=== PATIENT | male | born 1960 ===

== ENCOUNTER 2025-05-12 09:30 | Outpatient (AMB) | payer MEDICARE, SELFPAY ==
--- NOTE | 2025-05-12 09:50 | A.OFFVIS_ITS ---
Intake Visit Reasons: 6 Months F/U Allergies No Known Allergies Allergy (Verified 05/06/25 08:20) HPI Comments Details: 64 yo RH man with h/o many years of alcohol drinking and diagnosis of liver cirrhosis, CAD s/p CABG and atrial fibb, was here for second neurological opinion. He had multiple episodes of something happening to him. The major one was in 2021 but he had couple of similar episodes taking him to ER twice before. In 2021, he was not drinking alcohol when one day in the morning, he felt dizzy and collapsed. His heard the noise, came to see him and noted that he was staring in space and not responsive. He was taken to a local hospital where he was noted to have difficulty speaking, remembering, and walking. A routine EEG at office in Jun 2024 was ok. He is presenting with a follow-up inquiry regarding the management of vascular a nd cardiac conditions. He has been diagnosed with atrial fibrillation, for which anticoagulation therapy is ongoing to prevent stroke. The condition had previously resolved but has since recurred. Additionally, the patient has a history of coronary artery disease that was evaluated by a surgeon, but intervention was considered too risky. In November, imaging studies done at [facility] revealed a complete occlusion of the left carotid artery, whereas the condition of the right carotid artery was not deemed significant. He reports no symptoms of seizures, stroke-like events, or mood disturbances. He is maintaining compliance with a baby aspirin regimen. [facility] Medical History (Updated 05/12/25 @ 09:58 by Hilda Gutierrez MD) Cerebral microvascular disease Carotid stenosis Carotid occlusion, left Intracranial atherosclerosis Seizure disorder Cerebral infarction Review of Systems Const Details: - Cardiovascular: Reports atrial fibrillation; Denies additional cardiovascular symptoms. - Neurological: Denies seizure-type activity, stroke-like symptoms. - General: Denies mood disturbances. Physical Exam Neuro Other: Mental Status: Alert and oriented to person, place, and time. Normal attention. Normal spontaneous speech, fluency, and comprehension. No obvious issues with mood and memory. Affect is appropriate. Cranial Nerves: CN II: Visual hester full to confrontation, visual acuity intact. CN III, IV, : Pupils equal, round, reactive to light and accommodation. Extraocular movements are normal. CN V: Facial sensation is normal. CN VII: Facial movements symmetrical. CN VIII: Hearing intact to bedside conversation is normal. CN IX, X: Palate elevates symmetrically. CN XI: Shoulder shrug and head turn symmetrical. CN XII: Tongue midline without atrophy or fasciculations. Extrapyramidal: Full facial expressions and blinking. No rigidity. Movements are appropriate with no tremor or abnormality. Speech: Normal; no dysarthria or tremor. Assessment & Plan Assessment & Plan (1) Seizure disorder: Code(s): G40.909 - Epilepsy, unspecified, not intractable, without status epilepticus Category: Medical (2) Intracranial atherosclerosis: Code(s): I67.2 - Cerebral atherosclerosis Category: Medical (3) Carotid occlusion, left: Code(s): I65.22 - Occlusion and stenosis of left carotid artery Category: Medical Plan Impression: 1. Left carotid occlusion with no significant right carotid disease 2. Possible seizure disorder though symptoms were not happening at this time Recommendations: 1. Continue anticoagulation for stroke prevention because of atrial fibrillation 2. Re-evaluation of seizure-like episode would occur. Coding Level of Care Code Est Pt Level 4 (04137) Diagnoses Seizure disorder G40.909 Intracranial atherosclerosis I67.2 Carotid occlusion, left I65.22
--- OUTSIDE RECORDS SUMMARY | 2025-05-12 11:16 | XMS_ITS ---
Author Name [facility] Organization Unknown Care Team Organization Name Specialty Phone Email Start Date End Da te [facility] 06/25/2023 04/13/20 [facility] Termed, [facility] 07/03/202203/26
--- OUTSIDE RECORDS SUMMARY | 2025-05-12 11:16 | XMS_ITS | Clinical Summary ---
Author Organization [facility] [address] [place] [address] [place] [phone] Phone Care Team Providers Care Photo Engraver Name Role Phone Leslie Motta MD Primary Care Prov ider Allergies Active Allergy Reactions Criticality Noted Date Comments Other 05/06/2023 Tape Medications multivitamin with minerals (MULTIPLE VITAMIN-MINERAL S ORAL) Take 1 Tablet by mouth daily. 023 Active acetaminophen (TYLENOL) 325 mg tablet Take 2 Tablets by mouth every 6 hours as needed for Pain. 022 Active multivitamin minerals-iron (Therapeutic-M) 9 mg iron-400 mcg tablet Take 1 tablet by mouth 1 (one) time each day. 90 tablet 2 025 Active bevacizumab (AVASTIN) 25 mg/mL chemo injection Infuse 1 mL (25 mg total) into a venous catheter 1 (one) time. 025 Active tamsulosin (FLOMAX) 0.4 mg 24 hr capsule TAKE 1 CAPSULE BY MOUTH DAILY. TAKE 30 MINS AFTER SAME MEAL EVERY DAY. 90 capsule 1 025 Active Eliquis 5 mg tablet TAKE 1 TABLET BY MOUTH TWICE A DAY 180 tablet 1 025 Active gabapentin (NEURONTIN) 100 mg capsule TAKE 1 CAPSULE BY MOUTH TWICE A DAY 180 capsule 025 Active pyridoxine (B-6) 50 mg tablet TAKE 1 TABLET BY MOUTH EVERY DAY 90 tablet 1 025 Active evolocumab (Repatha Syringe) 140 mg/mL syringeIndicati ons:Pure hypercholestero lemia, unspecified INJECT CONTENTS OF 1 SYRINGE (140 MG) SUBCUTANEOUSLY EVERY 14 DAYS 140 mL 1 025 Active metoprolol succinate (TOPROL-XL) 25 mg 24 hr tabletIndicatio ns:Longstanding persistent atrial fibrillation (CMS/HCC V24, CMS/HCC V28) TAKE 1 TABLET BY MOUTH EVERY DAY 90 tablet 025 Active aspirin 81 mg EC tablet TAKE 1 TABLET BY MOUTH EVERY DAY 90 tablet 1 025 Active furosemide (LASIX) 20 mg tablet TAKE 1 TABLET BY MOUTH EVERY DAY 90 tablet 025 Active spironolactone (ALDACTONE) 25 mg tablet TAKE 1/2 TABLET BY MOUTH DAILY. 45 tablet 025 Active evolocumab (Repatha Syringe) 140 mg/mL syringeIndicati ons:Pure hypercholestero lemia, unspecified INJECT CONTENTS OF 1 SYRINGE (140 MG) SUBCUTANEOUSLY EVERY 14 DAYS 6 mL 025 2024 Discontinued metoprolol succinate (TOPROL-XL) 25 mg 24 hr tabletIndicatio ns:Longstanding persistent atrial fibrillation (CMS/HCC V24, CMS/HCC V28) TAKE 1 TABLET BY MOUTH EVERY DAY 90 tablet 1 025 2024 Discontinued aspirin 81 mg EC tablet TAKE 1 TABLET BY MOUTH EVERY DAY 90 tablet 1 025 2024 Discontinued spironolactone (ALDACTONE) 25 mg tablet TAKE 1/2 TABLET (12.5 MG TOTAL) BY MOUTH DAILY. 45 tablet 1 025 2024 Discontinued furosemide (LASIX) 20 mg tablet TAKE 1 TABLET BY MOUTH EVERY DAY 90 tablet 1 025 2024 Discontinued Active Problems Problem Noted Date Diagnosed Date CAD (coronary artery disease) 05/10/2023 Overview (05/28/2024): Last Assessment & Plan: The patient has a history of coronary artery disease status post CABG x 2 in February 2023. Recent echocardiogram done in August 2023 showed a normal LVEF. Currently, the patient denies any anginal symptoms. He completed cardiac rehab successfully after his CABG surgery. He continues to exercise at home using a stationary bike and denies any symptoms during this activity. The patient is currently on aspirin, metoprolol, ezetimibe, and atorvastatin. Given symptoms of myalgias we will discontinue the atorvastatin and we will start Repatha. Assessment & Plan (07/07/2024 10:55 AM EST): No signs of exacerbation, no chest pain, asymptomatic. Medications as above. Follows regularly with cardiology. Orders: Comprehensive metabolic panel; Future Lipid panel with reflex to direct LDL; Future Pleural effusion 05/10/2023 S/P CABG x 2 05/10/2023 Snoring 01/23/2023 Overview (05/28/2024): Last Assessment & Plan: The patient has a history of nighttime snoring. He also has a history of obesity, hypertension, as well as atrial fibrillation. As such, he would benefit from a sleep study to rule out the presence of sleep apnea. The patient agreed. We will order a sleep study. Sent recommendations to primary care physician: 1. Sleep study (already ordered) Carotid artery stenosis 06/26/2022 Overview (05/28/2024): 05/29/2022 Last Assessment & Plan: The patient had a CVA for which he was treated at [facility] in May 2022. While there, he underwent a brain MRI that was positive for apparent embolic CVAs. He was started on anticoagulation therapy with Eliquis. On the other hand, he underwent a head and neck CT angiogram that showed: Occlusion of the left ICA, 60% stenosis in the right common carotid artery, patent right ICA, patent right vertebral artery, moderate focal stenosis in the left vertebral artery. The patient also had evidence of intracranial stenosis. The patient is currently on atorvastatin 20 mg orally daily. He is also on antithrombotic therapy with Eliquis. Would recommend considering a referral for an evaluation with the vascular surgery service given his carotid artery stenosis. Recommendations to primary care physician: 1. Continue current statin therapy. 2. Consider referral for an evaluation with the vascular surgery service given the patient's carotid artery stenosis Liver cirrhosis ([facility] V24, [facility] V28) 06/26 Assessment & Plan (07/07/2024 10:55 AM EST): Stable, no signs of exacerbation. Continue diuretics. Denies any alcohol intake. Alcohol abuse 10/03/2021 Cholelithiasis 06/20/2021 Hepatocellular dysfunction 06/20/2021 Elevated liver enzymes 06/23/2020 Adenoma of large intestine 12/01/2015 Overview (05/28/2024): Colonoscopy 06/03/2012 Hyperlipidemia 10/19/2013 Overview (05/28/2024): Last Assessment & Plan: The patient has a history of hyperlipidemia. He also has a history of coronary artery disease. The patient has needed the combined use of ezetimibe and atorvastatin to control his cholesterol. However, the patient now states that he has been having symptoms of myalgias with the use of the atorvastatin. He decreased the atorvastatin to every other day and despite this change, he still having symptoms of myalgias. The patient does have a history of symptoms of myalgias with the use of other statins in the past (rosuvastatin and simvastatin). Therefore, we will need to discontinue the atorvastatin. In its place, we will start Repatha 140 mg subcutaneously every 14 days. The patient is agreeable to starting the Repatha. Will also continue his ezetimibe. Will repeat his lipid panel 2 months after starting the Repatha. Assessment & Plan (01/11/2025 11:33 AM EDT): Assessment & Plan (07/07/2024 10:55 AM EST): Patient previously on statin and Zetia, not well-tolerated for muscle pain. Currently on Repatha. Last LDL 67. Will recheck levels before his next visit. Orders: Comprehensive metabolic panel; Future Lipid panel with reflex to direct LDL; Future Atrial fibrillation (CMS/HCC V24, CMS/HCC V28) 0 12/05/2012 Overview (05/28/2024): Eliquis 05/2022 Last Assessment & Plan: The patient has a history of atrial fibrillation. He underwent a Maze procedure at the time of his CABG surgery. He also underwent a left atrial appendage exclusion with a 40 mm atrial clip at the time of his CABG surgery. Of note, the patient does have a history of embolic CVA in the past. He continues on rate control therapy with metoprolol. He is also on anticoagulation therapy with Eliquis 5 mg orally twice a day. At this point, we will continue his current medication regimen. Assessment & Plan (01/11/2025 11:33 AM EDT): Assessment & Plan (07/07/2024 10:55 AM EST): Denies any chest pain, palpitations, or sob. Continue Apixaban, Metoprolol. Hypertension 11/07/2005 Overview (05/28/2024): Last Assessment & Plan: The patient has a history of arterial hypertension. The patient's blood pressure today was noted to be well controlled. We'll continue the current antihypertensive medication regimen. Assessment & Plan (01/11/2025 11:33 AM EDT): Assessment & Plan (07/07/2024 10:55 AM EST): Well controlled. Today 124/82. Patient follows low-salt diet and exercises regularly. Currently on spironolactone, metoprolol, furosemide. Will continue same medications. He follows regularly with cardiology. Orders: Comprehensive metabolic panel; Future Lipid panel with reflex to direct LDL; Future Resolved Problems Problem Noted Date Diagnosed Date Resolved Date Stroke ([facility] V24, [facility] V28) 05/10/2023 07/07/2024 Encounters Date Type Department Care Team Description 03/15/2025 1:45 PM EDT Office Visit Lung Screening Program - [address] [id number] Juan Francisco Renee PA Encounter for screening for malignant neoplasm of lung in former smoker who quit in past 15 years with 30 pack year history or greater (Primary Dx); Smoking history 03/15/2025 1:21 PM EDT - 03/15/2025 11:59 PM EDT Hospital Encounter [facility] CT Scan [address] [place] [address] Encounter for screening for malignant neoplasm of respiratory organs; Personal history of nicotine dependence Discharge Disposition: Home or Self Care from Last 3 Months Immunizations Name Administration Dates Next Due Influenza Quadravalent, MDCK , 0.5ml, preservative free (Flucelvax) 6mo and older 05/06/2023,09/24/2022,05/24/2021,2019,04/29/2019,08/14/2018 Influenza Quadravalent, MDCK , 0.5ml, with preservative (Flucelvax) 6mo and older 08/01/2017 Influenza trivalent, 0.5mL ( Fluad) 65yo and older 07/07/2024 Influenza trivalent, with preservative (Fluzone; Afluria) 6mo and older 06/13/2016,08/01/2015,09/23/2014,2012,07/26/2010 Moderna SARS-CoV-2 COVID-19, mRNA, LNP-S, preservative free 09/18/2021 Pfizer (ages 12 & older) PADDY S-CoV-2 COVID-19, mRNA, LNP-S, james-sucrose, preservative free 09/18/2021 Pneumococcal conjugate 20 va lent (Prevnar 20, PCV 20) 2mo and older 06/19/2023 Td Tetanus diptheria (Tdvax) 7yo and older 12/22/2018 Tdap Tetanus diptheria acell ular pertussis (Boostrix; Adacel) 7yo and older 07/05/2008 Zoster recombinant (Shingrix ) 19yo and older 09/18/2021 Surgical History Surgery Date Site/Laterality Comments ANKLE SURGERY 10/2016 Left PROCEDURE: HISTORICAL ANKLE SURGERY; COMMENT: ORIF COLONOSCOPY 06/03/2012 PROCEDURE: HISTORICAL COLONOSCOPY; COMMENT: adenoma and tics; repeat in 5 yrs COLONOSCOPY W/ POLYPECTOMY 02/24/2018 PROCEDURE: AL COLSC FLX W/RMVL OF TUMOR POLYP LESION SNARE TQ; COMMENT: adenomas, tics and hemorrhoids; repeat in 6 months COLONOSCOPY 07/05/2021 PROCEDURE: HISTORICAL COLONOSCOPY; COMMENT: No specimens collected. Repeat in 5 years. CORONARY ARTERY BYPASS GRAFT 03/25/2023 PROCEDURE: HISTORICAL CABG Medical History Medical History Date Comments Essential hypertension, benign 11/07/2005 D X:Essential hypertension, benign History of ankle fracture 11/12/2017 DX:His tory of ankle fracture; COMMENT: Left; s/p ORIF 11/09 Hyperlipidemia 10/19/2013 DX:Hyperlipidemi a History of basal cell carcinoma 12/01/2015 DX:History of basal cell carcinoma; COMMENT: Cheek and eyelid- excised 02/26/2015 Chest pain 11/07/2005 DX:Chest pain; C OMMENT: Tachycardia: atypical chest pain not thought to be cardiac, patient has had complete cardiac and endocrine workup were negative Atrial fibrillation (CMS/HCC V24, CMS/HCC V28) 12/05/2012 DX:Atrial fibrillation (HCC) ; COMMENT: Chads 2: 1, daily ASA Adenoma of large intestine 12/01/2015 DX:Ad enoma of large intestine; COMMENT: Colonoscopy 06/03/2012 Hepatocellular dysfunction 06/20/2021 DX:He patocellular dysfunction Cholelithiasis 06/20/2021 DX:Cholelithiasi s 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 (CMS/HCC V24, CMS/HCC V28) 06/26/2022 DX:Cerebral infarc tion due to vascular stenosis (HCC) Liver cirrhosis (CMS/HCC V24 , CMS/HCC V28) 06/26/2022 DX:Liver cirrhosis (HCC) Stroke (CMS/HCC V24, CMS/HCC V28) 05/10/2023 Family History Medical History Relation Name Comments Brain cancer Aunt Paternal Liver cancer Aunt Paternal Other: Gout Brother Coronary artery disease Father fata l [place] Lymphoma Father NonHodgkins ESRD Mother Hypertension Mother Rheum arthritis Mother Stroke Mother Other: Angina Paternal Grandfather Breast cancer Neg Hx Colon cancer Neg Hx Diabetes Neg Hx Ovarian cancer Neg Hx Prostate cancer Neg Hx Relation Name Status Comments Aunt Paternal Brother Alive Gout Father Lymphoma Maternal Grandfather Maternal Grandmother Mother ESRD, Rheumatoi d Arthritis, HTN, CVA Paternal Grandfather Paternal Grandmother Social History Tobacco Use Types Packs/Day Years Used Date Smoking Tobacco: Former Cigarettes 1.5 46 1 - 05/25/2022 Smokeless Tobacco: Never Alcohol Use Standard Drinks/Week Comments Not Currently 0 (1 standard drink = 0.6 oz pur e alcohol) Housing Instability Answer Date Recorde d Are you worried that in the next 2 months you may not have stable housing? No 07/07/2024 Food Access & Nutrition Answer Date Rec orded Do you have access to a vari ety of food including fruits and vegetables? Yes 07/07/2024 Access to Healthcare Answer Date Record ed Within the last 3 months, ho w many times did you visit the emergency department for your medical care? 0 07/07/2024 Health Literacy Answer Date Recorded How often do you need to hav e someone help you when you read instructions, pamphlets, or other written material from your doctor or pharmacy? Never 07/07/2024 Caregiver: How often do you need to have someone help you when you read instructions, pamphlets, or other written material from your doctor or pharmacy? Not on file 07/07/2024 Financial Risk Answer Date Recorded How hard is it for you to pa y for the very basics like food, housing, medical care, and air conditioning / heating? Not very hard 07/07/2024 Transportation Answer Date Recorded Has the lack of transportati on kept you from meetings, work, or from getting things needed for daily living? No Has the lack of transportati on kept you from medical appointments or from getting medications? No 07/07/2024 Social Isolation Answer Date Recorded How often do you feel lonely or isolated from th ose around you? Never 07/07/2024 Food Risk Answer Date Recorded Within the past 12 months we worried whether our food would run out before we got money to buy more. Never true 07/07/2024 Within the past 12 months th e food we bought just didn't last and we didn't have money to get more. Never true 07/07/2024 Dependent Care Answer Date Recorded Do you need help finding or paying for care for your loved ones. For example, child guidance counselor or elderly care for an older adult? No 07/07/2024 Education Answer Date Recorded Do you think completing more education or training, like finishing a GED, going to college, or learning a trade, would be helpful for you? No 07/07/2024 Employment and Income Answer Date Recor ded During the last four weeks, have you been actively looking for work? No 07/07/2024 Living Situation Answer Date Recorded What is your living situation? 1 09/06/2023 Sex and Gender Information Value Date Recorded Sex Assigned at Not on file Legal Sex Male 4:12 AM EST Gender Identity Not on file Sexual Orientation Not on file Obstetrics History Last Filed Vital Signs Vital Sign Reading Time Taken Comments Blood Pressure 140/80 01/29/2025 10:19 AM EDT Pulse 80 01/29/2025 10:01 AM EDT Temperature 36.9 C (98.4 F) 03/15/2025 1:49 PM EDT Respiratory Rate 12 01/29/2025 10:00 AM EDT Oxygen Saturation - - Inhaled Oxygen Concentration - - Weight 113 kg (249 lb) 01/29/2025 10:00 AM EDT Height 177.8 cm (5' 10 ) 01/29/2025 10:00 AM EDT Body Mass Index 35.73 01/29/2025 10:00 AM EDT Plan of Treatment Upcoming Encounters Date Type Department Care Team (Late st Contact Info) Description 05/21/2025 10:00 AM EDT Consult Adult Medicine [address] [phone] Leslie Motta MD [address] [place] [address] 07/16/2025 11:30 AM EST Office Visit Adult Medicine [address] [phone] Leslie Motta MD [address] [place] [address] Health Maintenance Due Date Last Done Comments Hepatitis A Vaccines (1 of 2 - Risk 2-dose series) 1979 Zoster Vaccines (2 of 2) 11/13/2021 09/18/2021 Medicare Annual Wellness Visit 08/04/2022 Influenza Vaccine (#1) 2025 , 05/06/2023, 09/24/2022, Additional history exists Social Influencers of Health Screening 07/07/2025 07/07/2024 Hypertension/CHF/CAD Annual BMP Blood Test 01/04/2026 01/04/2025, 12/14/2024, 04/20/2024, Additional history exists Falls Risk Assessment 01/11/2026 01/11/2025 Lung Cancer Screening (Low Dose CT) 03/15/2026 03/15/2025 Colorectal Cancer Screening: Colonoscopy 07/05/2026 07/05/2021 DTaP,Tdap,and Td Vaccines (3 - Td or Tdap) 12/22/2028 12/22/2018, 07/05/2008 Cholesterol Screening (Lipid Panel) 01/04/2030 01/04/2025, 04/20/2024, 04/20/2024 RSV Immunization Adult Patients (1 - 1-dose 75+ series) 2034 COVID-19 Vaccine Discontinued 09/18/2021, , 01/05/2021, Additional history exists Hepatitis C Screening Completed 08/09/2022 Pneumococcal Vaccine: 50+ Years Completed 06/19/2023 Abdominal Aortic Aneurysm (AAA) Screen Completed 08/12/2024 Depression Screening Completed 01/10/2025, 10/28/19 HIB Vaccines Aged Out No longer eligi ble based on patient's age to complete this topic HPV Vaccines Aged Out No longer eligi ble based on patient's age to complete this topic Hepatitis B Vaccines Aged Out No long er eligible based on patient's age to complete this topic IPV Vaccines Aged Out No longer eligi ble based on patient's age to complete this topic MMR Vaccines Aged Out No longer eligi ble based on patient's age to complete this topic Meningococcal ACWY Vaccine Aged Out N o longer eligible based on patient's age to complete this topic Meningococcal B Vaccine Aged Out No l onger eligible based on patient's age to complete this topic RSV Immunization Patients Under 20 months Aged Out No longer eligible based on patient's age to complete this topic Varicella Vaccines Aged Out No longer eligible based on patient's age to complete this topic Procedures Procedure Name Priority Date/Time Associated Diagnosis Comments CT LUNG SCREENING Routine 03/15/2025 2:2 1 PM EDT Encounter for screening for malignant neoplasm of respiratory organs Personal history of nicotine dependence COMPREHENSIVE METABOLIC PANEL Routine 01/04/2025 10:30 AM EDT Mixed hyperlipidemia LIPID PANEL WITH REFLEX TO DIRECT LDL Routine 01/04/2025 10:30 AM EDT Mixed hyperlipidemia VAS US DUPLEX AAA SCREENING Routine 08/12/2024 7:54 AM EST Encounter for screening for abdominal aortic aneurysm (AAA) in patient 50 years of age or older with history of smoking DEPRESSION SCREENING Routine 10/28/2023 HEPATITIS C SCREENING Routine 08/09/2022 COLONOSCOPY Routine 07/05/2021 from Last 3 Months or Most Recently Relevant to Health Maintenance Results * CT Lung Screening (03/15/2025 2:21 PM EDT) Anatomical Region Laterality Modality Chest Computed Tomogra phy 03/17/2025 7:24 AM EDT Impressions 03/17/2025 7:33 AM EDT No suspicious mass or nodule. Previous cardiac surgery LUNG RADS: Lung-RADS 1: NEGATIVE S Modifier (Significant or Potentially Significant Findings): None present No suspicious nonpulmonary findings. RECOMMENDATIONS: 12 month screening low dose CT -------- FINAL REPORT -------- Dictated By: Vasquez Hutson Dictated Date: 03/17/2025 07:24 ET Assigned Physician: Vasquez Hutson Reviewed and Electronically Signed By: Vasquez Hutson Signed Date: 03/17/2025 07:33 ET Workstation ID: [id number] Transcribed By: Self Edit Transcribed Date: 03/17/2025 07:24 ET Narrative 03/17/2025 7:33 AM EDT EXAMINATION: CT CHEST WITHOUT CONTRAST LUNG CANCER SCREENING, LOW DOSE CLINICAL INFORMATION: Lung cancer screening. Former smoker. COMPARISON: None TECHNIQUE: Multidetector CT. Examination of the chest. Examination of the chest without IV contrast. Reformatting in the coronal and sagittal planes. Device: [employer] [place] DLP: 181 mGy-cm CTDI: 4.89 Dose optimization was performed including the use of low-dose iterative reconstruction technique with automatic exposure control based on patient size. Type of contrast: None Volume of IV contrast: None Volume of contrast discarded: 0 mL FINDINGS: Digital lathing supervisor demonstrates evidence of sternotomy and mediastinal surgery with atrial appendage clipping. LUNG: There is some narrowing of the transverse diameter of the trachea. LUNG NODULES: There are no suspicious nodules or masses. OTHER PULMONARY: There is at least mild centrilobular emphysema. There is no focal pneumonia or edema. There are a few minor linear/reticular lung base opacities but there is no honeycomb formation. There are no significant interstitial lung abnormalities. MEDIASTINUM: There are no enlarged mediastinal or hilar lymph nodes. No suspicious abnormalities of the esophagus. CARDIAC: Previous coronary artery bypass grafting. Left atrial appendage clipping. There is a metallic density projecting within the left ventricle. No pericardial fluid. Previous coronary artery bypass grafting. There is some high density in the region of the aortic valve. VASCULAR: There is no thoracic aortic aneurysm. The main pulmonary artery is normal caliber PLEURA: There is no pleural fluid or pneumothorax AXILLA/CHEST WALL: There are no enlarged axillary lymph nodes. No chest wall mass demonstrated. VISUALIZED UPPER ABDOMEN: Suspect some mild irregularity of the liver contour. Cholelithiasis. Calcification along the surface of the spleen does not appear acute. MUSCULOSKELETAL: Previous sternal wires and plating. There is chronic deformity of the lateral upper left ribs. There are extensive bridging osteophytes and/or syndesmophytes within the spine. There is vacuum phenomena in the mid thoracic region. There is convex right thoracic scoliosis. I suspect a rigid spine Procedure Note Vasquez Hutson MD - 03/17/2025 EXAMINATION: CT CHEST WITHOUT CONTRAST LUNG CANCER SCREENING, LOW DOSE CLINICAL INFORMATION: Lung cancer screening. Former smoker. COMPARISON: None TECHNIQUE: Multidetector CT. Examination of the chest. Examination of the chest without IV contrast. Reformatting in the coronal and sagittal planes. Device: [employer] [place] DLP: 181 mGy-cm CTDI: 4.89 Dose optimization was performed including the use of low-dose iterativereconstruction technique with automatic exposure control based on patientsize. Type of contrast: None Volume of IV contrast: None Volume of contrast discarded: 0 mL FINDINGS: Digital lathing supervisor demonstrates evidence of sternotomy andmediastinal surgery with atrial appendage clipping. LUNG: There is some narrowing of the transverse diameter of the trachea. LUNG NODULES: There are no suspicious nodules or masses. OTHER PULMONARY: There is at least mild centrilobular emphysema. Thereis no focal pneumonia or edema. There are a few minor linear/reticularlung base opacities but there is no honeycomb formation. There are nosignificant interstitial lung abnormalities. MEDIASTINUM: There are no enlarged mediastinal or hilar lymph nodes. Nosuspicious abnormalities of the esophagus. CARDIAC: Previous coronary artery bypass grafting. Left atrial appendageclipping. There is a metallic density projecting within the leftventricle. No pericardial fluid. Previous coronary artery bypass grafting. There is some high density inthe region of the aortic valve. VASCULAR: There is no thoracic aortic aneurysm. The main pulmonary arteryis normal caliber PLEURA: There is no pleural fluid or pneumothorax AXILLA/CHEST WALL: There are no enlarged axillary lymph nodes. No chestwall mass demonstrated. VISUALIZED UPPER ABDOMEN: Suspect some mild irregularity of the livercontour. Cholelithiasis. Calcification along the surface of the spleendoes not appear acute. MUSCULOSKELETAL: Previous sternal wires and plating. There is chronicdeformity of the lateral upper left ribs. There are extensive bridgingosteophytes and/or syndesmophytes within the spine. There is vacuumphenomena in the mid thoracic region. There is convex right thoracicscoliosis. I suspect a rigid spine IMPRESSION: No suspicious mass or nodule. Previous cardiac surgery LUNG RADS: Lung-RADS 1: NEGATIVE S Modifier (Significant or Potentially Significant Findings): Nonepresent No suspicious nonpulmonary findings. RECOMMENDATIONS: 12 month [address] low dose [address] -------- FINAL REPORT -------- Dictated By: Vasquez Hutson Dictated Date: 03/17/2025 07:24 ET Assigned Physician: Vasquez Hutson Reviewed and Electronically Signed By: Vasquez Hutson Signed Date: 03/17/2025 07:33 ET Workstation ID: [id number] Transcribed By: Self Edit Transcribed Date: 03/17/2025 07:24 ET us Mira Son MD IMG CT PROCEDURES Final Result * (ABNORMAL) Lipid panel with reflex to direct LDL (01/04/2025 10:30 AM EDT) Cholesterol 121 0 - 200 mg/dL LAB CHEMISTRY METHOD 01/04/2025 2:22 PM EDT [facility] Triglycerides 104 0 - 150 mg/dL LAB CHEMISTRY METHOD 01/04/2025 2:22 PM EDT [facility] HDL 39(L) >=40 mg/dL LAB CHEMISTRY METHOD 01/04/2025 2:22 PM EDT [facility] LDL Calculated 61 0 - 100 mg/dL LAB CHEMISTRY METHOD 01/04/2025 2:22 PM EDT [facility] VLDL Cholesterol Jose 20.8 mg/dL LAB CHEMISTRY METHOD 01/04/2025 2:22 PM EDT [facility] Non HDL Chol. (LDL+VLDL) 82 <145 mg/dL LAB CHEMISTRY METHOD 01/04/2025 2:22 PM EDT [facility] Chol/HDL Ratio 3.1 0.0 - 4.4 LAB CHEMISTRY METHOD 01/04/2025 2:22 PM T [facility] Blood Venous blood specimen / Unknown Venipuncture / Unknown 01/04/2025 10:30 AM EDT 01/04/2025 10:30 AM EDT us Leslie Motta MD LAB BLOOD ORDERABL ES Final Result [facility] [address] [place] [address], [place] [phone] * (ABNORMAL) Comprehensive metabolic panel (01/04/2025 10:30 AM EDT) Sodium 140 133 - 145 mmol/L LAB CHEMISTRY METHOD 01/04/2025 2:22 PM EDT [facility] Potassium 4.3 3.5 - 5.5 mmol/L LAB CHEMISTRY METHOD 01/04/2025 2:22 PM [facility] Chloride 106 96 - 110 mmol/L LAB CHEMISTRY METHOD 01/04/2025 2:22 PM [facility] CO2 24 21 - 32 mmol/L LAB CHEMISTRY METHOD 01/04/2025 2:22 PM [facility] Anion Gap 10 3 - 11 LAB CHEMISTRY METHOD 01/04/2025 2:22 PM [facility] Glucose 130(H) 70 - 100 mg/dL LAB CHEMISTRY METHOD 01/04/2025 2:22 PM [facility] BUN 19 5 - 25 mg/dL LAB CHEMISTRY METHOD 01/04/2025 2:22 PM [facility] Creatinine 1.10 0.70 - 1.30 mg/dL LAB CHEMISTRY METHOD 01/04/2025 2:22 PM [facility] eGFR 74 >=60 mL/min/1. 73m2 LAB CHEMISTRY METHOD 01/04/2025 2:22 PM [facility] Comment:Calculation based on the Chronic Kidney Disease Epidemiology Collaboration (CKD-EPI) equation refit without adjustment for race. BUN/Creatinine Ratio 17.3 LAB CHEMISTRY METHOD 01/04/2025 2:22 PM [facility] Calcium 9.4 8.5 - 10.5 mg/dL LAB CHEMISTRY METHOD 01/04/2025 2:22 PM [facility] AST (SGOT) 46(H) 10 - 42 unit/L LAB CHEMISTRY METHOD 01/04/2025 2:22 PM [facility] ALT (SGPT) 59 10 - 60 unit/L LAB CHEMISTRY METHOD 01/04/2025 2:22 PM [facility] Alkaline Phosphatase 93 42 - 121 unit/L LAB CHEMISTRY METHOD 01/04/2025 2:22 PM [facility] Total Protein 7.8 6.0 - 8.0 g/dL LAB CHEMISTRY METHOD 01/04/2025 2:22 PM EDT [facility] Albumin 3.7 3.2 - 5.0 g/dL LAB CHEMISTRY METHOD 01/04/2025 2:22 PM EDT [facility] Total Bilirubin 0.8 0.0 - 1.4 mg/dL LAB CHEMISTRY METHOD 01/04/2025 2:22 PM EDT [facility] Blood Venous blood specimen / Unknown Venipuncture / Unknown 01/04/2025 10:30 AM EDT 01/04/2025 10:30 AM EDT us Leslie Motta MD LAB BLOOD ORDERABL ES Final Result [facility] [address] [place] [address], [place] [phone] * Vascular US abdominal aorta aneurysm (AAA) screening (08/12/2024 7:54 AM EST) Anatomical Region Laterality Modality Vascular, Abdomen Ultrasound 08/12/2024 9:22 AM EST Impressions 08/12/2024 9:24 AM EST No evidence of an abdominal aortic aneurysm. POS - [id number] -------- FINAL REPORT -------- Dictated By: Sylvia Castellon Dictated Date: 08/12/2024 09:22 ET Assigned Physician: Sylvia Castellon Reviewed and Electronically Signed By: Sylvia Castellon Signed Date: 08/12/2024 09:24 ET Workstation ID: [id number] Transcribed By: Self Edit Transcribed Date: 08/12/2024 09:22 ET Narrative 08/12/2024 9:24 AM EST EXAM: Abdominal aorta ultrasound, AAA screening HISTORY: AAA screening. History of tobacco use. COMPARISON: None FINDINGS: Exam limited by patient body habitus and prominent bowel gas. No evidence of an abdominal aortic aneurysm. Proximal aorta measures 1.9 cm in maximal sagittal diameter. Mid aorta measures 1.9 cm. Distal aorta measures 1.4 cm. Proximal right common iliac artery measures 1.4 cm. Proximal left common iliac artery measures 1.1 cm. Mild echogenicities along the vascular wall from atherosclerotic disease. Procedure Note Sylvia Castellon MD - 08/12/2024 EXAM: Abdominal aorta ultrasound, AAA screening HISTORY: AAA screening. History of tobacco use. COMPARISON: None FINDINGS: Exam limited by patient body habitus and prominent bowel gas. No evidence of an abdominal aortic aneurysm. Proximal aorta measures 1.9cm in maximal sagittal diameter. Mid aorta measures 1.9 cm. Distal aortameasures 1.4 cm. Proximal right common iliac artery measures 1.4 cm.Proximal left common iliac artery measures 1.1 cm. Mild echogenicitiesalong the vascular wall from atherosclerotic disease. IMPRESSION: No evidence of an abdominal aortic aneurysm. POS - [id number] -------- FINAL REPORT -------- Dictated By: Sylvia Castellon Dictated Date: 08/12/2024 09:22 ET Assigned Physician: Sylvia Castellon Reviewed and Electronically Signed By: Sylvia Castellon Signed Date: 08/12/2024 09:24 ET Workstation ID: [id number] Transcribed By: Self Edit Transcribed Date: 08/12/2024 09:22 ET Result [facility] Leslie Motta MD CV VASCULAR PROCED URES Final Result * Depression Screening (10/28/2023) Depression Screening abstracted Result [facility] Historical [facility] [employer] Final Result * Hepatitis C Screening (08/09/2022) Pathologist [facility] Hepatitis C Screening abstracted Historical Provider HEALTH MAINTENANCE Final Result * Colonoscopy (07/05/2021) Pathologist [facility] Colonoscopy no interpretation , abstracted Anatomical Region Laterality Modality Other Result [facility] Historical [facility] [employer] Final Result from Last 3 Months or Most Recently Relevant to Health Maintenance Insurance MEDICARE Care Teams Photo Engraver Relationship Specialty Start Date End Date Leslie Motta MD [address] [place] [phone] PCP - General Internal Medicine 06/06/22
== END 2025-05-12 10:02 | disposition home or self-care (01) ==
LOC: HO.HSM 09:31
PROVIDERS: PCP Internal Medicine; Referring Provider Internal Medicine; Visit Provider Psychiatry & Neurology Neurology
DX: G40.909 Epilepsy, unspecified, not intractable, without status epilepticus (principal); I67.2 Cerebral atherosclerosis; I65.22 Occlusion and stenosis of left carotid artery
CPT/HCPCS: 99214

== ENCOUNTER → 2025-05-12 09:30 | Outpatient (BNVA) | payer MEDICARE, SELFPAY | PROVIDERS: PCP Internal Medicine; Referring Provider Internal Medicine; Visit Provider Psychiatry & Neurology Neurology | DX: I67.2 Cerebral atherosclerosis (principal); I65.22 Occlusion and stenosis of left carotid artery; G40.909 Epilepsy, unspecified, not intractable, without status epilepticus | CPT/HCPCS: 99212 ==